=== PATIENT | female | born 1970 | race Caucasian/White ===

== ENCOUNTER 2016-09-01 09:20 | Emergency (ER) | payer OTHER ==
[2016-09-01 09:29] VITALS: BP 111/70; PULSE 73; RESP 16; TEMP 97.9; O2SAT 96
--- NOTE | 2016-09-01 10:01 | EDPHY ---
H & P Stated Complaint: LACERATION TO LEFT POINTER FINGER WITH KNIFE HPI/ROS: CHIEF COMPLAINT: Cut on pointer finger HISTORY OF PRESENT ILLNESS: This is a healthy 46-year-old female who cut the tip of her left index finger with a kitchen knife. She is right-hand dominant. She denies numbness or weakness. No other injuries. Her tetanus is current. REVIEW OF SYSTEMS: No recent fever, headache, cough or cold, vomiting, diarrhea, abdominal pain, or dysuria. Source: Patient Exam Limitations: No limitations - Personal History LMP (Females 10-55): 15-21 Days Ago Current Tetanus Diphtheria and Acellular Pertussis (TDAP): Yes Tetanus Vaccine Date: < 10 YEARS - Medical/Surgical History Hx Asthma: No Hx Chronic Respiratory Disease: No Hx Diabetes: No Hx Cardiac Disease: No Hx Renal Disease: No Hx Cirrhosis: No Hx Alcoholism: No Hx HIV/AIDS: No Hx Splenectomy or Spleen Trauma: No Other PMH: DENIES - Social History Smoking Status: Never smoked Additional Social History: She works as a environmental scientist. - Physical Exam Exam: General Appearance: Alert. Vital signs reviewed. Focused exam performed. Respiratory: Lungs are clear to auscultation; no wheezes, rales, or rhonchi. Cardiovascular: Regular rate and rhythm. Skin: Warm and dry, no rashes on exposed skin, normal color. Extremities: 1 cm vertical laceration on the palmar aspect of her distal left index finger, actively bleeding. Pulses: 2+ left radial pulse. Neurological: Alert and oriented. Moving all four extremities easily and equally. Sensation intact to light touch over the left hand. Full flexion and extension of the left index finger with testing of the MCP, PIP, and the DIP. Psychiatric: Normal affect. Constitutional: Initial Vital Signs Temperature (C) 36.6 C 09/01/16 09:26 Heart Rate 73 09/01/16 09:26 Respiratory Rate 16 09/01/16 09:26 Blood Pressure 111/70 09/01/16 09:26 O2 Sat (%) 96 09/01/16 09:26 Allergies/Adverse Reactions: No Known Allergies Allergy (Unverified 09/01/16 09:30) Home Medications: Medication Instructions Recorded [facility] 09/01/16 Medical Decision Making Procedures: Procedure: Laceration repair. Verbal consent was obtained from the patient. The 1 cm laceration on the distal left index finger, palmar aspect was anesthetized in the usual fashion. The wound was irrigated, draped and explored to its base with a gloved finger. There were no deep structures involved. No tendon injury was identified. The wound was repaired with 5 0 nylon, six interrupted stitches . The wound repair was single layer. The procedure was performed by myself. ED Course/Re-evaluation: I considered a differential diagnosis that includes but is not limited to laceration, tendon injury, vascular injury, nerve injury, and infection. Departure - Departure Disposition: Home, Routine, Self-Care Clinical Impression: Laceration Condition: Good Instructions: Finger Laceration (ED) Additional Instructions: Leave the bandage in place for 24 hours. After that you can remove the bulky bandage, gently wash the stitches, and cover them with a Band-Aid or contract coordinator dressing. Be sure that you keep the stitches clean and dry. The stitches should be removed in 7-10 days. There are 6 stitches total. Referrals: Lise Cherry MD [Primary Care Provider] - As per Instructions
== END 2016-09-01 10:43 | disposition home or self-care (01) ==
LOC: CED 09:20
PROC: 0HQGXZZ Repair Left Hand Skin, External Approach (ICD-10-PCS; principal; 2016-09-01)
DX: S61.211A Laceration without foreign body of left index finger without damage to nail, initial encounter (principal); W26.0XXA Contact with knife, initial encounter

== ENCOUNTER → 2016-11-07 | Outpatient (CLI) | payer OTHER | LOC: CIMAGING 09:54 | PROVIDERS: ATTEND Internal Medicine | DX: Z12.31 Encounter for screening mammogram for malignant neoplasm of breast (principal) | CPT/HCPCS: G0202 ==